=== PATIENT | female | born 1935 | race Caucasian/White ===

== ENCOUNTER 2018-03-12 00:17 | Emergency (ER) | payer MEDICAID, OTHER ==
[2018-03-12] MEDS ORDERED: Ondansetron ODT 4 MG TAB ONE ×2 (01:18→03:37)
[2018-03-12] MEDS ORDERED: Morphine 4 MG/ML VIAL ONE ×4 (01:18→03:46)
[2018-03-12] MEDS ORDERED: Ketorolac Tromethamine 30 MG/ML VIAL ONE ×2 (01:18→03:37)
[2018-03-12 01:40] LABS: #Eosinphils 0.1 thou/uL (0.0-0.7); #Lymphocytes 1.4 thou/uL (1.20-3.40); #Monocytes 0.6 thou/uL (0.11-0.59); #Neutrophils 10.3 thou/uL (1.40-6.50); %Basophils 0.4 % (0.0-1.0); %Eosinophils 1.2 % (0.0-10.0); %Lymphocytes 11.1 % (21.0-51.0); %Monocytes 4.8 % (0.0-10.0); %Neutrophils 82.6 % (42.0-75.0); Hemoglobin 15.2 g/dL (12.0-16.0); Mean Corpuscular HGB CONC 32.3 g/dL (32.0-36.0); Mean Corpuscular Hemoglobin 29.4 pg (27.0-31.0); Mean Corpuscular Volume 90.9 fL (78.0-98.0); Mean Platelet Volume 7.4 fL (7.4-10.4); Platelet Count 198 thou/uL (130-400); RBC Distribution Width 11.2 % (11.5-14.5); Red Blood Cell (RBC) Count 5.19 mill/uL (4.20-5.40); White Blood Cell (WBC) Count 12.5 thou/uL (4.8-10.8)
[2018-03-12 01:58] LABS: ALT (SGPT) 18 U/L (8-55); AST (SGOT) 24 U/L (5-34); Albumin 3.8 g/dL (3.4-4.8); Alkaline Phosphatase 109 U/L (40-150); Anion Gap 16 mmol/L (10-20); BUN (Urea Nitrogen) 17 mg/dL (9.8-20.1); Calc. Creatinine Clearance 0 mL/min (70-130); Carbon Dioxide 23 mmol/L (23-31); Chloride 106 mmol/L (98-107); Estimated GFR-MDRD 71; Glucose 126 mg/dL (83-110); Potassium 3.9 mmol/L (3.5-5.1); Protein, Total 6.8 g/dL (6.0-8.3); Sodium 141 mmol/L (136-145)
--- NOTE | 2018-03-12 09:46 | RAD ---
AP VIEW OF THE CHEST: INDICATION: COPD and dyspnea. COMPARISON: None. FINDINGS: There is marked interstitial prominence and hyperinflation consistent with patient's history of COPD. There is mild cardiomegaly. No focal consolidation or pleural effusion or pneumothorax is evident. No acute osseous abnormality is evident. IMPRESSION: 1. Chronic obstructive pulmonary disease change. 2. Mild cardiomegaly without evidence of cardiac decompensation. POS: [facility]
--- NOTE | 2018-03-12 09:59 | RAD ---
AP VIEW OF THE PELVIS: INDICATION: Fall with pelvic pain. FINDINGS: There is a mildly displaced left inferior pubic ramus fracture better seen on the comparison CT of th e pelvis with bilateral pubic root fractures. There is a nondisplaced left sacral ala fracture. The re is diffuse osteopenia. Visualized proximal femurs are within normal limits. IMPRESSION: 1. Bilateral pubic root fractures. 2. Mildly displaced left inferior pubic ramus fracture. 3. Nondisplaced left sacral ala fracture. POS: [facility]
--- NOTE | 2018-03-12 10:02 | RAD ---
TWO VIEWS OF THE LEFT FEMUR: INDICATION: Fall with left hip pain. FINDINGS: No acute fracture or subluxation is evident. Soft tissues are normal. IMPRESSION: No acute osseous abnormality. POS: [facility]
== END 2018-03-12 02:32 | disposition short-term general hospital (02) ==
LOC: MADERS 00:17
DX: S32.592A Other specified fracture of left pubis, initial encounter for closed fracture (principal); J44.9 Chronic obstructive pulmonary disease, unspecified; I10 Essential (primary) hypertension; I71.4 Abdominal aortic aneurysm, without rupture; F17.210 Nicotine dependence, cigarettes, uncomplicated; Z79.899 Other long term (current) drug therapy; W01.0XXA Fall on same level from slipping, tripping and stumbling without subsequent striking against object, initial encounter
CPT/HCPCS: 36415; 71045; 72170; 80053; 85025; 93005; 94760; 96374; 96375; J1885; J2270; Q0162